=== PATIENT | male | born 1995 | race Caucasian/White ===

== ENCOUNTER → 2018-06-12 | Outpatient (CLI) | payer OTHER ==
[~2018-06-12] MED LIST: PROHANCE 279.3MG/ML 15ML VIAL (A9576) As Ordered ONE; PROHANCE 279.3MG/ML 5ML VIAL (A9576) As Ordered ONE
--- NOTE | 2018-06-13 09:08 | REP ---
MRI LEFT SHOULDER WITH AND WITHOUT CONTRAST: TECHNIQUE: Axial T2 fat sat, gradient echo, sagittal oblique T2 fat sat, coronal oblique T1, T2 fat sat. Axial T1 fat sat, post IV gadolinium axial and coronal oblique T2 fat sat following the intravenous administration of 20 mL ProHance. Minimal tendinopathy is noted in the supraspinatus tendon. There is no rotator cuff tendon tear. I do not see significant hypertrophic changes at the acromioclavicular joint. The acromion is mildly downward sloping and is type 2. Biceps tendon is within the bicipital groove with no tenosynovitis. There is no Hill-Sachs deformity. Deltoid muscle demonstrates no abnormal signal. Biceps labral complex is intact. There is no evidence of a labral tear. No paralabral cyst is seen. There is no bone marrow edema or occult fracture. There is a normal amount of joint fluid. No abnormal enhancement is seen. There is no enhancing mass. IMPRESSION: Minimal supraspinatus tendinopathy. No rotator cuff tear or labral tear. The acromion is mildly downward sloping and is type 2. I see no other significant finding. Electronically Signed by Sekou Rabago MD 06/13/2018 03:24 P
== END ==
LOC: M RAD 15:46
PROVIDERS: ATTEND Family Medicine
DX: M25.512 Pain in left shoulder (principal); M65.812 Other synovitis and tenosynovitis, left shoulder
CPT/HCPCS: 73223; A9576